=== PATIENT | female | born 1955 | race Caucasian/White ===

== ENCOUNTER → 2018-06-16 | Outpatient (REF) | payer BC ==
[~2018-06-16] MED LIST: CLAR-1 PO; FLUT1DIS28 IH; PRED-420 PO; PRED20TA6 PO
[2018-06-16 15:34] LABS: PLATELET COUNT, AUTOMATED 275 K/uL (150-450)
== END ==
PROVIDERS: ATTEND Nurse Practitioner Family
DX: M54.5 Low back pain (principal)
CPT/HCPCS: 82040; 82247; 82310; 82374; 82435; 82565; 82947; 84075; 84132; 84155; 84295; 84450; 84460; 84520; 85025